=== PATIENT | female | born 1950 | race Caucasian/White ===

== ENCOUNTER → 2016-11-17 | Outpatient (CLI) | payer OTHER ==
--- NOTE | 2016-11-17 11:59 | RAD ---
DATE: 11/17/2016 EXAM: MAMMO COLLEEN SCREENING BILATERAL HISTORY: Screening COMPARISON: 10/22/2015 This study was interpreted with the benefit of Computerized Aided Detection (CAD). FINDINGS: Breast Density: SCATTERED The breast parenchyma shows scattered fibroglandular densities. Breast parenchyma level B. There has not been a significant change. Known mass in the left breast appears unchanged. Biopsy clips are noted in both breasts. Occasional intramammary lymph nodes are noted. IMPRESSION: Benign finding BI-RADS CATEGORY: 2 BENIGN FINDING(S) RECOMMENDED FOLLOW-UP: 12M 12 MONTH FOLLOW-UP PQRS compliance statement: Patient information was entered into a reminder system with a target due date 11/17/2017 for the next mammogram. Mammography is a sensitive method for finding small breast cancers, but it does not detect them all and is not a substitute for careful clinical examination. A negative mammogram does not negate a clinically suspicious finding and should not result in delay in biopsying a clinically suspicious abnormality. "Our facility is accredited by the [employer] Mammography Program."
== END | disposition home or self-care (01) ==
LOC: MAMMO 10:07
PROVIDERS: ATTEND Physician Assistant Medical
DX: Z12.31 Encounter for screening mammogram for malignant neoplasm of breast (principal)
CPT/HCPCS: 77063; G0202; 77067

== ENCOUNTER → 2016-12-12 | Outpatient (CLI) | payer OTHER ==
--- NOTE | 2016-12-12 15:45 | RAD ---
EXAM: Lumbar spine 3 views. HISTORY: Low back pain and left lower extremity numbness COMPARISON: None. FINDINGS: There is a minimal lumbar levoscoliosis. Vertebral body heights are maintained, and no fractures are identified. Degenerative disc disease is mild at L2-3 and L5-S1, and moderate at other lumbar levels. It is worst at L1-2. Facet osteoarthritis appears moderate from L4 through S1. IMPRESSION: 1. Mild to moderate diffuse lumbar degenerative disc disease is above.
== END | disposition home or self-care (01) ==
LOC: DXRADRC 15:11
PROVIDERS: ATTEND Physician Assistant Medical
DX: M51.36 Other intervertebral disc degeneration, lumbar region (principal)
CPT/HCPCS: 72100

== ENCOUNTER → 2017-09-19 | Outpatient (CLI) | payer MEDICARE | END | disposition home or self-care (01) | LOC: SURG 10:34 | PROVIDERS: ATTEND Anesthesiology | DX: M54.16 Radiculopathy, lumbar region (principal); M25.551 Pain in right hip; M79.1 Myalgia; G89.4 Chronic pain syndrome | CPT/HCPCS: 99204 ==

== ENCOUNTER → 2017-10-03 | Outpatient (CLI) | payer MEDICARE ==
[~2017-10-03] MED LIST: 0.9 % SODIUM CHLORIDE 10 ML VIAL ONE; DEXAMETHASONE SOD PHOS 4 MG/ML VIAL ONE; IOHEXOL 300 MG/ML 50 ML VIAL. ONE; LIDOCAINE 1% PF 30 ML VIAL. ONE; methylPREDNISolone ACETATE 80 MG/ML VIAL. ONE
== END ==
LOC: SURG 09:06
PROVIDERS: ATTEND Anesthesiology
DX: M54.16 Radiculopathy, lumbar region (principal); J45.909 Unspecified asthma, uncomplicated; Z72.89 Other problems related to lifestyle; Z87.39 Personal history of other diseases of the musculoskeletal system and connective tissue; Z96.641 Presence of right artificial hip joint
CPT/HCPCS: 62323; J1100; J2001; Q9967; J1040

== ENCOUNTER → 2017-11-14 | Outpatient (CLI) | payer MEDICARE ==
[~2017-11-14] MED LIST changes: -methylPREDNISolone ACETATE 80 MG/ML VIAL. ONE
== END | disposition home or self-care (01) ==
LOC: SURG 08:57
PROVIDERS: ATTEND Anesthesiology
DX: M54.16 Radiculopathy, lumbar region (principal); J45.909 Unspecified asthma, uncomplicated; Z72.89 Other problems related to lifestyle; M19.90 Unspecified osteoarthritis, unspecified site; M16.11 Unilateral primary osteoarthritis, right hip; Z96.643 Presence of artificial hip joint, bilateral; Z72.0 Tobacco use
CPT/HCPCS: 62323; J1100; J2001; Q9967

== ENCOUNTER → 2017-12-12 | Outpatient (CLI) | payer MEDICARE, OTHER ==
--- NOTE | 2017-12-12 13:30 | RAD ---
DATE: December 12, 2017 EXAM: MAMMO COLLEEN SCREENING BILATERAL HISTORY: Routine screening. COMPARISON: November 17, 2016. October 22, 2015. TECHNIQUE: 2D digital CC and MLO views were obtained. 3D tomosynthesis imaging was performed in the CC and MLO projections. This study was interpreted with the benefit of Computerized Aided Detection (CAD). FINDINGS: The breast parenchyma is heterogeneously dense, category C, which may obscure small masses. Previously biopsied mass in the medial left breast with adjacent biopsy clip is similar in appearance to prior. Biopsy clip is also noted on the right. Additional presumed intraparenchymal lymph nodes bilaterally are stable. No spiculated mass or enlarging mass is apparent. There are benign calcifications. There are no suspicious groupings of microcalcifications. IMPRESSION: Stable mammogram with benign findings. BI-RADS CATEGORY: 2 BENIGN FINDING RECOMMENDED FOLLOW-UP: 12M 12 MONTH FOLLOW-UP PQRS compliance statement: Patient information was entered into a reminder system with a target due date for the next mammogram. Mammography is a sensitive method for finding small breast cancers, but it does not detect them all and is not a substitute for careful clinical examination. A negative mammogram does not negate a clinically suspicious finding and should not result in delay in biopsying a clinically suspicious abnormality. "Our facility is accredited by the [employer] Mammography Program."
== END | disposition home or self-care (01) ==
LOC: MAMMO 10:21
PROVIDERS: ATTEND Physician Assistant Medical
DX: Z12.31 Encounter for screening mammogram for malignant neoplasm of breast (principal); J45.909 Unspecified asthma, uncomplicated
CPT/HCPCS: 77063; 77067

== ENCOUNTER → 2017-12-19 | Outpatient (CLI) | payer MEDICARE ==
[~2017-12-19] MED LIST changes: -0.9 % SODIUM CHLORIDE 10 ML VIAL ONE; +BUPIVACAINE MPF 0.25% 10 ML VIAL. ONE; -DEXAMETHASONE SOD PHOS 4 MG/ML VIAL ONE; +methylPREDNISolone ACETATE 40 MG/ML VIAL. ONE
== END | disposition home or self-care (01) ==
LOC: SURG 08:59
PROVIDERS: ATTEND Anesthesiology
DX: M16.11 Unilateral primary osteoarthritis, right hip (principal); J45.909 Unspecified asthma, uncomplicated; Z72.89 Other problems related to lifestyle; Z72.0 Tobacco use; Z96.641 Presence of right artificial hip joint
CPT/HCPCS: 20610; 77002; J1030; J2001; J3490; Q9967; 20611

== ENCOUNTER → 2018-01-23 | Outpatient (CLI) | payer MEDICARE | END | disposition home or self-care (01) | LOC: SURG 08:38 | PROVIDERS: ATTEND Anesthesiology | DX: M54.16 Radiculopathy, lumbar region (principal); M25.552 Pain in left hip; J45.909 Unspecified asthma, uncomplicated; Z96.643 Presence of artificial hip joint, bilateral; Z87.39 Personal history of other diseases of the musculoskeletal system and connective tissue | CPT/HCPCS: 99214 ==

== ENCOUNTER → 2018-02-27 | Outpatient (CLI) | payer MEDICARE ==
[~2018-02-27] MED LIST changes: +0.9 % SODIUM CHLORIDE 10 ML VIAL ONE; -BUPIVACAINE MPF 0.25% 10 ML VIAL. ONE; +DEXAMETHASONE SOD PHOS 4 MG/ML VIAL ONE; +LIDOCAINE 1% PF 2 ML VIAL. ONE; -LIDOCAINE 1% PF 30 ML VIAL. ONE; -methylPREDNISolone ACETATE 40 MG/ML VIAL. ONE
== END | disposition home or self-care (01) ==
LOC: SURG 08:44
PROVIDERS: ATTEND Anesthesiology
DX: M54.16 Radiculopathy, lumbar region (principal)
CPT/HCPCS: 62323; J1100; Q9967

== ENCOUNTER 2019-03-19 11:12 | Emergency (ER) | payer MEDICARE ==
[~2019-03-19] VITALS: Ht 177.8 cm; Wt 67.7 kg
[2019-03-19 11:12] VITALS: BP 149/114
[2019-03-19] MEDS ORDERED: IV NORMAL SALINE 1,000ML 1,000 ML IV SCH (11:39)
[2019-03-19] MEDS ORDERED: ASPIRIN 81 MG TAB.CHEW ONE (11:58)
[2019-03-19 12:00] LABS: BASO % 0 % (0-3); EOS % 1 % (0-3); HEMOGLOBIN 13.8 g/dL (12.0-15.5); LYMPH # 0.9 x10^3/uL (1.0-4.8); LYMPH % 20 % (24-48); MEAN CORPUSCULAR HEMOGLOBIN 31 pg (25-35); MEAN CORPUSCULAR HGB CONC 34 g/dL (31-37); MEAN CORPUSCULAR VOLUME 91 fL (79-100); MONO # 0.5 x10^3/uL (0.0-1.1); MONO % 12 % (0-9); NEUT % 67 % (31-73); PLATELET COUNT 192 x10^3/uL (140-400); RED BLOOD COUNT 4.51 x10^6/uL (3.50-5.40); RED CELL DISTRIBUTION WIDTH 15.1 % (11.5-14.5); WHITE BLOOD COUNT 4.4 x10^3/uL (4.0-11.0)
[2019-03-19] MEDS ORDERED: ASPIRIN 81 MG TAB.CHEW PO ONE (12:00)
[2019-03-19 12:15] LABS: ALBUMIN 3.4 g/dL (3.4-5.0); ALBUMIN/GLOBULIN RATIO 1.1 (1.0-1.7); CALCIUM 9.4 mg/dL (8.5-10.1); GFR 55.3; POTASSIUM 4.1 mmol/L (3.5-5.1); TOTAL BILIRUBIN 0.3 mg/dL (0.2-1.0); TOTAL PROTEIN 6.6 g/dL (6.4-8.2)
--- NOTE | 2019-03-19 13:01 | RAD ---
Examination: PORTABLE CHEST 1V History: Chest pain Comparison/Correlation: None Findings: Upright portable frontal view chest was obtained. Heart size and pulmonary vasculature are normal. No infiltrate or pleural effusion. No pneumothorax. Scarring involving the left humeral head is noted. Impression: No active disease. Electronically signed by: Yuval Chan MD (03/19/2019 12:58 PM) [facility]
[2019-03-19 13:31] LABS: BACTERIA,URINE FEW /HPF (0-FEW); BILIRUBIN,URINE NEG (NEG); CLARITY,URINE HAZY; COLOR,URINE YELLOW; GLUCOSE,URINE NEG (NEG); NITRITE,URINE NEG (NEG); UROBILINOGEN,URINE 0.2 mg/dL (0.2 mg/dL)
[2019-03-19 13:32] LABS: SQUAMOUS EPITHELIAL CELL,UR FEW /LPF
[2019-03-19] MEDS ORDERED: CLON0.5T11 PO (15:28)
--- NOTE | 2019-03-19 15:28 | PHYS DOC ---
Past History Past Medical History: Anxiety, Asthma, Depression, Other Additional Past Medical Histor: osteoarthritis Past Surgical History: Hip Replacement Alcohol Use: None Drug Use: None Adult General Chief Complaint Chief Complaint: ANXIETY/PANIC ATTACK HPI HPI Patient is a 69-year-old female who presents with complaint of significant anxiety and chest tightness that started earlier this morning. Patient states that she didn't really want to come into the emergency room but was witnessed by office workers where she volunteers that she was shaking all over and reported that she was having some chest tightness. Patient indicates that she has been having an increase in her level of anxiety. Patient states that she recently had her antidepressant changed to a new one and since that time her depression and anxiety have gotten worse. She states that she cares for her who is on peritoneal dialysis and she is feeling very overwhelmed. She does admit to some intermittent thoughts of self-harm but states that she would never actually do anything to harm herself because she has so many people who need her. She denies ever having had any plan. She also denies any homicidal ideations. Patient does see a counselor already.[] Review of Systems Review of Systems Constitutional: Denies fever or chills [] Respiratory: Denies cough or shortness of breath [] Cardiovascular: No additional information not addressed in HPI [] GI: Denies abdominal pain, nausea, vomiting or diarrhea [] Integument: Denies rash or skin lesions [] Neurologic: Denies headache, focal weakness or sensory changes [] All other systems were reviewed and found to be within normal limits, except as documented in this note. Current Medications Current Medications Current Medications Medications (Trade) Dose Ordered Sig/[facility] Start Time Stop Time Status Last Admin Dose Admin Aspirin (Children'S Aspirin) 81 mg STK-MED ONCE 03/19/19 11:58 03/19/19 11:59 DC Sodium Chloride 1,000 ml @ 1,000 mls/hr Q1H 03/19/19 11:39 03/19/19 12:38 DC 03/19/19 11:39 1,000 MLS/HR Allergies Allergies Allergies Coded Allergies Type Severity Reaction Last Updated Verified No Known Drug Allergies 03/19/19 No Physical Exam Physical Exam Constitutional: Well developed, well nourished, no acute distress, non-toxic appearance. [] HENT: Normocephalic, atraumatic, bilateral external ears normal, oropharynx moist, no oral exudates, nose normal. [] Eyes: PERRLA, EOMI, conjunctiva normal, no discharge. [] Neck: Normal range of motion, no tenderness, supple, no stridor. [] Cardiovascular: Regular rate and rhythm[] Lungs & Thorax: Bilateral breath sounds clear to auscultation [] Abdomen: Bowel sounds normal, soft, no tenderness. [] Skin: Warm, dry, no erythema, no rash. [] Extremities: No tenderness, no cyanosis, no clubbing, ROM intact, no edema. [] Neurologic: Alert and oriented X 3, no focal deficits noted. [] Psychologic: Flattened affect with depressed mood. [] Current Patient Data Vital Signs Vital Signs Date Time Temp Pulse Resp B/P (MAP) Pulse Ox O2 Delivery O2 Flow Rate FiO2 03/19/19 11:12 98.2 93 28 97 Room Air Lab Results Laboratory Tests Test 03/19/19 11:45 03/19/19 13:05 White Blood Count 4.4 x10^3/uL (4.0-11.0) Red Blood Count 4.51 x10^6/uL (3.50-5.40) Hemoglobin 13.8 g/dL (12.0-15.5) Hematocrit 41.0 % (36.0-47.0) Mean Corpuscular Volume 91 fL (79-100) Mean Corpuscular Hemoglobin 31 pg (25-35) Mean Corpuscular Hemoglobin Concent 34 g/dL (31-37) Red Cell Distribution Width 15.1 % (11.5-14.5) H Platelet Count 192 x10^3/uL (140-400) Neutrophils (%) (Auto) 67 % (31-73) Lymphocytes (%) (Auto) 20 % (24-48) L Monocytes (%) (Auto) 12 % (0-9) H Eosinophils (%) (Auto) 1 % (0-3) Basophils (%) (Auto) 0 % (0-3) Neutrophils # (Auto) 3.0 x10^3uL (1.8-7.7) Lymphocytes # (Auto) 0.9 x10^3/uL (1.0-4.8) L Monocytes # (Auto) 0.5 x10^3/uL (0.0-1.1) Eosinophils # (Auto) 0.0 x10^3/uL (0.0-0.7) Basophils # (Auto) 0.0 x10^3/uL (0.0-0.2) Sodium Level 143 mmol/L (136-145) Potassium Level 4.1 mmol/L (3.5-5.1) Chloride Level 108 mmol/L (98-107) H Carbon Dioxide Level 26 mmol/L (21-32) Anion Gap 9 (6-14) Blood Urea Nitrogen 19 mg/dL (7-20) Creatinine 1.0 mg/dL (0.6-1.0) Estimated GFR (Cockcroft-Gault) 55.3 BUN/Creatinine Ratio 19 (6-20) Glucose Level 120 mg/dL (70-99) H Calcium Level 9.4 mg/dL (8.5-10.1) Total Bilirubin 0.3 mg/dL (0.2-1.0) Aspartate Amino Transferase (AST) 20 U/L (15-37) Alanine Aminotransferase (ALT) 18 U/L (14-59) Alkaline Phosphatase 62 U/L (46-116) Troponin I Quantitative < 0.017 ng/mL (0-0.055) Total Protein 6.6 g/dL (6.4-8.2) Albumin 3.4 g/dL (3.4-5.0) Albumin/Globulin Ratio 1.1 (1.0-1.7) Urine Collection Type Unknown Urine Color Yellow Urine Clarity Hazy Urine pH 7.0 Urine Specific [place] 1.015 Urine Protein Neg (NEG-TRACE) Urine Glucose (UA) Neg mg/dL (NEG) Urine Ketones (Stick) Neg mg/dL (NEG) Urine Blood Trace (NEG) Urine Nitrite Neg (NEG) Urine Bilirubin Neg (NEG) Urine Urobilinogen Dipstick 0.2 mg/dL (0.2 mg/dL) Urine Leukocyte Esterase Small (NEG) Urine RBC 3-5 /HPF (0-2) Urine WBC 1-4 /HPF (0-4) Urine Squamous Epithelial Cells Few /LPF Urine Bacteria Few /HPF (0-FEW) EKG EKG [] Radiology/Procedures Radiology/Procedures [] Course & Med Decision Making Course & Med Decision Making Pertinent Labs and Imaging studies reviewed. (See chart for details) Patient moved to room upon arrival was evaluated by ER medical staff after which cardiac workup was initiated on this patient. Workup is returned unremarkable. Patient does indicate that she takes Xanax for her anxiety but states that she is concerned about that because of its addiction potential. She also is concerned that it makes her too sleepy. We did contact the guidance Center for patient but they indicate that they will not come to evaluate patient unless she is actively suicidal. They did provide patient with access for an appointment tomorrow which patient indicates she will follow-up with them during their hours of operation. Patient ultimately discharged home with prescription for clonazepam. Dragon Disclaimer Dragon Disclaimer This electronic medical record was generated, in whole or in part, using a voice recognition dictation system. Departure Departure: Impression: Primary Impression: Anxiety Additional Impression: Atypical chest pain Disposition: 01 HOME, SELF-CARE Condition: STABLE Referrals: OFE WALKER (PCP) Patient Instructions: Anxiety and Panic Attacks, Chest Pain (Nonspecific) Scripts Clonazepam (CLONAZEPAM) 0.5 Mg Tablet 1 TAB PO BID PRN for ANXIETY, #14 TAB Prov: SHERRON BLANK Jr. DO 03/19/19 Problem Qualifiers SHERRON BLANK Jr. DO Mar 19, 2019 15:28
--- NOTE | 2019-03-19 16:27 | EKG ---
[address] [address] Test Date: 2019-03-19 Test Time: 11:30:26 Pat Name: SHANELL FERNÁNDEZ Department: Room: Gender: F [employer]: : 1950 Requested By: SHERRON BLANK Order Number: [id number] Reading MD: Measurements Intervals [place] Rate: 86 P: 49 KS: 136 QRS: 26 QRSD: 76 T: 41 QT: 328 QTc: 395 Interpretive Statements SINUS RHYTHM NORMAL ECG RI6.01 No previous ECG available for comparison
== END 2019-03-19 15:53 | disposition home or self-care (01) ==
LOC: ER 11:12
DX: F41.9 Anxiety disorder, unspecified (principal); R07.89 Other chest pain; J45.909 Unspecified asthma, uncomplicated; F32.9 Major depressive disorder, single episode, unspecified; M19.90 Unspecified osteoarthritis, unspecified site
CPT/HCPCS: 36415; 71045; 80053; 81001; 84484; 85025; 87086; 93005; 99285-25; J7030

== ENCOUNTER → 2020-01-07 | Outpatient (CLI) | payer MEDICARE ==
[~2020-01-07] MED LIST changes: -0.9 % SODIUM CHLORIDE 10 ML VIAL ONE; +CLON0.5T4 PO; -DEXAMETHASONE SOD PHOS 4 MG/ML VIAL ONE; -IOHEXOL 300 MG/ML 50 ML VIAL. ONE; -LIDOCAINE 1% PF 2 ML VIAL. ONE
--- NOTE | 2020-01-07 13:13 | RAD ---
AP and Lateral Views of the Chest 01/07/2020 11:37 AM Indication: Reason: COUGH / Spl. Instructions: / History: Comparison: Chest radiograph March 19, 2019 Findings: There is no focal consolidation or infiltrate identified. The cardiomediastinal silhouette is within normal limits. There is no evidence of pneumothorax or pleural effusion. No acute osseous abnormalities are identified. Impression: No evidence of acute cardiopulmonary process. Electronically signed by: Zeke Morel MD (01/07/2020 1:11 PM) [id number]
== END | disposition home or self-care (01) ==
LOC: DXRAD 11:32
PROVIDERS: ATTEND Physician Assistant Medical
DX: R05 Cough (principal); Z00.00 Encounter for general adult medical examination without abnormal findings
CPT/HCPCS: 71046

== ENCOUNTER → 2020-10-07 | Outpatient (CLI) | payer MEDICARE ==
--- NOTE | 2020-10-07 10:16 | RAD ---
INDICATION: Screening for osteopenia/osteoporosis. Postmenopausal evaluation. COMPARISON: None. TECHNIQUE: Bone densitometry was performed through the lumbar spine and proximal femur. IMPRESSION: Lumbar Spine: BMD: 1.0 T-Score: -1.3 Range: Osteopenic Proximal Femur: BMD: 0.69 T-Score: -2.2 Range: Lower limits of osteopenic range on border with osteoporosis World Health Organization Criteria for Bone Density: T-Score: > -1.0: Normal Range < -1.0 to -2.5: Osteopenic Range < -2.5: Osteoporotic Range Electronically signed by: Homer Stark MD (10/07/2020 10:13 AM) [id number]
--- NOTE | 2020-10-07 11:16 | RAD ---
DATE: October 07, 2020 EXAM: MAMMO COLLEEN SCREENING BILATERAL HISTORY: Screening study. COMPARISON: 2015 through 2018 This study was interpreted with the benefit of Computerized Aided Detection (CAD). FINDINGS: Breast Density: HETERO The breast parenchyma is heterogenously dense, which could reduce sensitivity of mammography. Breast parenchyma level C. Again seen are bilateral breast nodules. The most dominant nodule is seen within the medial aspect of the left breast which is stable. A biopsy clip is seen in this area. History of benign bilateral breast biopsies. There are no new dominant suspicious masses, suspicious microcalcifications or evidence of architectural distortion. IMPRESSION: No mammographic indicators for malignancy. BI-RADS CATEGORY: 2 BENIGN FINDING RECOMMENDED FOLLOW-UP: 12M 12 MONTH FOLLOW-UP PQRS compliance statement: Patient information was entered into a reminder system with a target due date October 08, 2021 for the next mammogram. Mammography is a sensitive method for finding small breast cancers, but it does not detect them all and is not a substitute for careful clinical examination. A negative mammogram does not negate a clinically suspicious finding and should not result in delay in biopsying a clinically suspicious abnormality. "Our facility is accredited by the [employer] Mammography Program." The patient's breast density may affect the ability of mammography to detect breast cancer. There are 4 categories of breast density, A, B, C and D. Breast density A means that most of the breast tissue is replaced with adipose tissue and therefore is not dense. Breast density B means that the breast tissue is mildly dense and scattered. Breast density C means that the breast tissue is heterogeneously dense. Breast density D means that the breast tissue is very dense. Breast densities especially C and D may decrease the sensitivity of mammography to detect breast cancer. Therefore, the patient may benefit from 3-D breast mammography (3D breast tomography) as a part of their screening mammogram. Insurance may or may not pay for this additional imaging. The patient's breast density based on today's mammogram is category C.
== END ==
LOC: MAMMO 09:24
PROVIDERS: ATTEND Physician Assistant Medical
DX: Z12.31 Encounter for screening mammogram for malignant neoplasm of breast (principal); Z13.820 Encounter for screening for osteoporosis; N63.10 Unspecified lump in the right breast, unspecified quadrant; N63.20 Unspecified lump in the left breast, unspecified quadrant; M85.88 Other specified disorders of bone density and structure, other site; Z78.0 Asymptomatic menopausal state
CPT/HCPCS: 77063; 77067; 77080

== ENCOUNTER → 2021-06-15 | Outpatient (CLI) | payer MEDICARE ==
--- NOTE | 2021-06-15 15:11 | RAD ---
Study: XR KNEE _3 VIEWS_LT Indication: Chronic pain. Comparison: 07/08/2015 Findings: Femorotibial compartment joint space height is maintained. No acute fracture. Alignment is anatomic. Small patellar osteophytes and radiographic manifestations of chondrosis at the patellofemoral compar tment. No large joint effusion. Geographic lucency at the posterior margin of the proximal tibia with some associated sclerosis and c ortical thickening is unchanged from 2016. Impression: 1. Mild arthrosis at the patellofemoral compartment. Femorotibial compartment joint space height is m aintained. 2. Geographic part lucent and part sclerotic focus at the posterior margin of the proximal tibia typi gaurang of a benign finding such as a fibro-osseous process as this was present in 2016 and is without an y notable changer fixer 6 years. Electronically signed by: WOODROW VIERA MD (06/15/2021 3:09 PM) [facility]
--- NOTE | 2021-06-15 15:15 | RAD ---
Study: XR SHOULDER_LEFT 2+ VIEWS Indication: Chronic pain. Comparison: 11/24/2015 Findings: Progressive moderate glenohumeral joint arthrosis with increasing inferomedial humeral head osteophyt ic proliferation and subchondral sclerosis. Degenerative ridging along the glenoid. Arthrosis at the acromioclavicular joint is mild. The acromiohumeral space is maintained. No acute fracture or traumat ic malalignment. Impression: Moderate glenohumeral joint arthrosis which has progressed from the 2016 comparison. No acute osseous abnormality. Electronically signed by: WOODROW VIERA MD (06/15/2021 3:13 PM) [facility]
== END ==
LOC: RAD 14:00
PROVIDERS: ATTEND Physician Assistant Medical
DX: M19.012 Primary osteoarthritis, left shoulder (principal); M17.12 Unilateral primary osteoarthritis, left knee; M25.762 Osteophyte, left knee
CPT/HCPCS: 73030; 73562

== ENCOUNTER → 2021-07-07 | Outpatient (CLI) | payer MEDICARE ==
--- NOTE | 2021-07-07 14:14 | RAD ---
EXAM: Bilateral knees, standing view. HISTORY: Pain. COMPARISON: 06/15/2021 FINDINGS: A frontal view of the knees is obtained. There is no fracture, dislocation or subluxation. There is no suspicious osseous lesion. IMPRESSION: No acute osseous finding. Electronically signed by: Emily Sarabia MD (07/07/2021 2:11 PM) [id number]
== END ==
LOC: RAD 13:48
PROVIDERS: ATTEND Orthopaedic Surgery Sports Medicine
DX: M25.562 Pain in left knee (principal)
CPT/HCPCS: 73565